=== PATIENT | male | born 1995 | race Caucasian/White ===

== ENCOUNTER 2023-04-05 12:26 | Emergency (ER) | payer OTHER ==
[~2023-04-05] VITALS: Ht 180.3 cm; Wt 111.6 kg
[2023-04-05] MEDS ORDERED: NAPR220C23 PO (12:41)
[2023-04-05 16:00] LABS: GC DNA AMPLIFICATION NEGATIVE (NEGATIVE)
[2023-04-05] MEDS ORDERED: NAPR-837 PO (17:01)
[2023-04-05 17:11] VITALS: BP 125/81; TEMP 97.6; O2SAT 100
== END 2023-04-05 17:13 | disposition home or self-care (01) ==
LOC: M ED 12:26
DX: N50.82 Scrotal pain (principal)

== ENCOUNTER 2023-08-09 16:51 | Emergency (ER) | payer OTHER ==
[~2023-08-09] VITALS: Ht 180.3 cm; Wt 108.2 kg
[~2023-08-09 16:51] MED LIST: NAPR-837 PO; NAPR220C23 PO
[2023-08-09] MEDS ORDERED: SUMA25TA3 (16:59)
[2023-08-09] MEDS ORDERED: KETOROLAC 30 MG/ML 1ML VIAL IV ONE (20:15)
[2023-08-09] MEDS ORDERED: METHOCARBAMOL 1,000 MG/10 ML VIAL IV ONE (20:15)
[2023-08-09 20:46] LABS: BASO # 0.1 10^3/uL (0.0-0.2); BASO % 0.4 % (0.0-1.0); EOS # 0.2 10^3/uL (0.0-0.5); HEMATOCRIT 42.4 % (42.0-52.0); HEMOGLOBIN 15.4 g/dl (13.5-17.5); LYMPH # 1.6 10^3/uL (1.5-5.0); MEAN CORPUSCULAR HEMOGLOBIN 31.4 pg (27.0-33.0); MEAN CORPUSCULAR HGB CONC 36.3 g/dl (32.0-36.5); MEAN CORPUSCULAR VOLUME 86.5 fl (80.0-96.0); MONO # 0.8 10^3/uL (0.0-0.8); MONO % 4.9 % (2.0-8.0); NEUTROPHILS # 13.6 10^3/uL (1.5-8.5); NEUTROPHILS % 83.3 % (36.0-66.0); PLATELET COUNT, AUTOMATED 181 10^3/uL (150-450); WHITE BLOOD COUNT 16.3 10^3/uL (4.0-10.0)
[2023-08-09] MEDS ORDERED: ISOVUE-370 76% 100ML VIAL As Ordered ONE (20:59)
[2023-08-09 21:45] LABS: BLOOD UREA NITROGEN 15 MG/DL (9-23); CALCIUM LEVEL 8.9 MG/DL (8.5-10.1); CARBON DIOXIDE LEVEL 28 MMOL/L (20-31); CHLORIDE LEVEL 106 MMOL/L (98-107); CREATININE FOR GFR 0.96 MG/DL (0.70-1.30); GLOMERULAR FILTRATION RATE > 60.0 (>60); GLUCOSE, FASTING 84 MG/DL (60-100); POTASSIUM SERUM 4.1 MMOL/L (3.5-5.1); SODIUM LEVEL 142 MMOL/L (136-145)
[2023-08-09] MEDS ORDERED: NAPR-837 PO (22:39)
[2023-08-09] MEDS ORDERED: METH-1165 PO (22:39)
[2023-08-09 22:50] VITALS: BP 134/84; TEMP 98.6; O2SAT 97
== END 2023-08-09 23:04 | disposition home or self-care (01) ==
LOC: M ED 16:51
DX: M54.9 Dorsalgia, unspecified (principal); F17.290 Nicotine dependence, other tobacco product, uncomplicated; Z79.899 Other long term (current) drug therapy
CPT/HCPCS: 70450; 70496; 70498; 80047; 80048; 85025; 87486; 87581; 87633; 87798; 96374; 96375; 99284; J1885; J2800; Q9967

== ENCOUNTER → 2023-10-05 | Outpatient (CLI) | payer OTHER ==
[~2023-10-05] MED LIST changes: +ISOVUE-370 76% 100ML VIAL As Ordered ONE; +METH-1165 PO; +SUMA25TA3
== END ==
LOC: M RAD 09:10
PROVIDERS: ATTEND Emergency Medicine
DX: M54.9 Dorsalgia, unspecified (principal); K76.0 Fatty (change of) liver, not elsewhere classified; N20.0 Calculus of kidney
CPT/HCPCS: 74174; Q9967

== ENCOUNTER → 2025-07-25 | Outpatient (CLI) | payer OTHER ==
[~2025-07-25] MED LIST changes: -ISOVUE-370 76% 100ML VIAL As Ordered ONE
== END ==
LOC: M RAD 08:23
PROVIDERS: ATTEND Pain Medicine Interventional Pain Medicine
DX: M54.16 Radiculopathy, lumbar region (principal); M54.14 Radiculopathy, thoracic region